=== PATIENT | male | born 1955 | race Caucasian/White ===

== ENCOUNTER 2021-02-21 05:44 | Outpatient (CLI) | payer MEDICARE, BC ==
[~2021-02-21] VITALS: Ht 175 cm; Wt 85.2 kg
[~2021-02-21 05:44] MED LIST changes: -DIAZ10TA PO
[2021-02-21] MEDS ORDERED: DIAZ10TA PO (17:53)
[2021-02-21] MEDS ORDERED: TMSL.4C PO (17:53)
[2021-02-21] MEDS ORDERED: LISI1TAB46 PO (17:53)
== END 2021-02-22 06:49 | disposition home or self-care (01) ==
LOC: PREOP 05:44
PROVIDERS: ATTEND Urology
DX: Z01.818 Encounter for other preprocedural examination (principal)

== ENCOUNTER → 2021-02-21 | Outpatient (CLI) | payer MEDICARE, BC ==
[~2021-02-21] MED LIST: DIAZ10TA PO; FENO145T26 PO; GLIP10TA24 PO; LISI1TAB46 PO; METF-399 PO; NAPR220T66 PO; PIOG15TA67 PO; SERT-414 PO; TMSL.4C PO
--- NOTE | 2021-02-21 12:29 | Diagnostic Imaging Report ---
INDICATION: Left-sided ureteral stone. FINDINGS: A supine view of the abdomen shows interval placement of a left-sided ureteral stent since the 02/18/2021 study. There are several stones in the lower pole of the left kidney whereas, on the previous exam, there was a stone in the left ureter and a stone in the lower pole of the left kidney. No stones on the right are seen. IMPRESSION: Interval placement of a left-sided ureteral stent which appears to be in satisfactory position. There are nonobstructing stones in the lower pole of the left kidney. Dictated by: Dictated on workstation # [id number]
== END ==
LOC: RAD 11:09
PROVIDERS: ATTEND Urology
DX: N20.2 Calculus of kidney with calculus of ureter (principal)
CPT/HCPCS: 74018

== ENCOUNTER 2021-02-22 07:01 | Day surgery (SDC) | payer MEDICARE, BC ==
[2021-02-22] VITALS (11 sets, daily range): BP systolic 132–173; BP diastolic 65–91
[~2021-02-22] VITALS: Ht 175 cm; Wt 85.2 kg
[~2021-02-22 07:01] MED LIST changes: +DIAZ10TA PO
--- NOTE | 2021-02-22 07:27 | Progress Note-Pre Operative ---
Pre-Operative Progress Note H&P Reviewed The H&P was reviewed, patient examined and no changes noted. Date Seen by Provider: Feb 22, 2021 Time Seen by Provider: 07:27 Date H&P Reviewed: Feb 22, 2021 Time H&P Reviewed: 07:27 Pre-Operative Diagnosis: LT RENAL STONES CECIL ALEJO MD Feb 22, 2021 07:27
[2021-02-22] MEDS ORDERED: LACTATED RINGERS 1,000 ML IV PRN (07:45)
[2021-02-22] MEDS ORDERED: cefTRIAXone 1,000 MG in WATER (STERILE) FOR INJECTION 10 ML IV ONE (07:45)
[2021-02-22] MEDS ORDERED: WATER (STERILE) FOR INJECTION 10 ML ONE (07:50)
[2021-02-22] MEDS ORDERED: cefTRIAXone 1,000 MG VIAL ONE (07:50)
--- NOTE | 2021-02-22 10:08 | Progress Note-Post Operative ---
Post-Operative Progess Note Surgeon (s)/Progress Man (s) Surgeon CECIL ALEJO MD Progress Man: NONE Pre-Operative Diagnosis LT RENAL STONES Post-Operative Diagnosis SAME Procedure & Operative Findings Date of Procedure 02/22/21 Procedure Performed/Findings LT ESWL Anesthesia Type GENERAL Estimated Blood Loss Estimated blood loss (mL): NONE Specimens/Packing Specimens Removed NONE Packing: NONE CECIL ALEJO MD Feb 22, 2021 10:08
--- NOTE | 2021-02-22 10:10 | Discharge Inst-Urology ---
Discharge Inst-Urology Reconcile Patient Problems Problems Reviewed?: Yes Final Diagnosis LT RENAL STONES Patient Instructions/Follow Up Plan/Assessment/Instructions Please make appointment to been seen in office , KUB prior to it KUB on way home Post ESWL instructions Increase oral fluids for 48 hours and then as needed. Diet and Activity as tolerated. If questions or concerns contact your physician Or seek help at emergency department. CECIL ALEJO MD Feb 22, 2021 10:10
[2021-02-22] MEDS ORDERED: proPOfol 200 MG/20 ML (DIPRIVAN) VIAL IV ONE (10:19)
[2021-02-22] MEDS ORDERED: ONDANSETRON 4 MG/2 ML (SDV) Z0FRAN ONE (10:19)
[2021-02-22] MEDS ORDERED: LIDOCAINE PF 2% 5 ML (XYLOCAINE) VIAL ONE (10:19)
[2021-02-22] MEDS ORDERED: fentaNYL INJ 100 MCG/2 ML AMP ONE ×2 (10:20→11:03)
[2021-02-22] MEDS ORDERED: MIDAZOLAM 2 MG/2 ML (VERSED) VIAL ONE (10:20)
[2021-02-22] MEDS ORDERED: FUROSEMIDE 40 MG/4 ML INJ (LASIX) ONE (10:58)
[2021-02-22] MEDS ORDERED: KETOROLAC 30 MG/ML VIAL ONE (10:59)
[2021-02-22] MEDS ORDERED: MEPERIDINE (DEMEROL) INJ 50 MG/ML ONE (11:26)
[2021-02-22] MEDS ORDERED: SEVOFLURANE (ULTANE) 15 ML INHAL SOLN ONE (11:34)
[2021-02-22] MEDS ORDERED: MEPERIDINE (DEMEROL) INJ 50 MG/ML IVP PRN (11:45)
--- NOTE | 2021-02-22 12:51 | Diagnostic Imaging Report ---
EXAMINATION: Abdomen 1 view HISTORY: POST ESWL COMPARISON: 02/21/2021 FINDINGS: There is a moderate amount of gas and stool throughout the colon. Nonobstructive bowel gas pattern. Overall stable size and appearance of multiple stones overlying the left kidney measuring up to 1.2 cm. A left ureteral stent is present. Stable calcification of the left pelvis. The lung bases are clear. The osseous structures are intact. IMPRESSION: Stable left renal calculi measuring up to 1.2 cm. Left ureteral stent is unchanged. Dictated by: Dictated on workstation # [id number]
--- NOTE | 2021-02-22 14:34 | Anesthesia-General Post-Op ---
General Patient Condition Mental Status/LOC: Same as Preop Cardiovascular: Satisfactory Nausea/Vomiting: Absent Respiratory: Satisfactory Pain: Controlled Complications: Absent Post Op Complications Complications None Follow Up Care/Instructions Patient Instructions None needed. Anesthesia/Patient Condition Patient Condition Patient is doing well, no complaints, stable vital signs, no apparent adverse anesthesia problems. No complications reported per nursing. D/C home per [facility] [place] Criteria: Yes MABEL WAY CRNA Feb 22, 2021 14:34
--- NOTE | 2021-02-22 19:22 | OPERATIVE REPORT ---
DATE OF SERVICE: 02/22/2021 PREOPERATIVE DIAGNOSIS: Left renal stones. POSTOPERATIVE DIAGNOSIS: Left renal stones. OPERATION PERFORMED: Left ESWL. SURGEON: Sukhwinder Aeljo MD. ANESTHESIA: General. COMPLICATIONS: None. DESCRIPTION OF PROCEDURE: Under satisfactory general anesthesia, the patient in supine position on the ESWL table, the originally left proximal ureteral stone now left renal stone was localized. Shocks were delivered at kV of 6. The patient was breathing and moving his kidney up and down, which diminished the effectiveness of the shocks. However, the stone showed cracking and breaking. The patient received 40 mg of Lasix and 30 mg of Toradol IV at the end of the procedure. He tolerated the procedure and anesthesia well and was sent to recovery room in stable condition. PLAN: We will see the effect of this procedure on him. If it is not effective and it is not worth repeating it, we will try to convince him again to go to to have percutaneous lithotripsy for which he is a good candidate. Job ID: [id number] DocumentID: [id number] Dictated Date: 02/22/2021 11:08:11 Restaurant Kitchen And Service Manager Date: 02/22/2021 19:21:49 Dictated By: SUKHWINDER ALEJO MD
== END 2021-02-22 13:15 | disposition home or self-care (01) ==
LOC: SDC 07:01
PROVIDERS: ATTEND Urology
DX: N20.0 Calculus of kidney (principal); K21.9 Gastro-esophageal reflux disease without esophagitis; I10 Essential (primary) hypertension; E66.9 Obesity, unspecified; Z68.27 Body mass index [BMI] 27.0-27.9, adult; Z11.2 Encounter for screening for other bacterial diseases; Z88.5 Allergy status to narcotic agent; Z98.61 Coronary angioplasty status; Z87.891 Personal history of nicotine dependence; Z79.899 Other long term (current) drug therapy
CPT/HCPCS: 74018; 82947; 87081

== ENCOUNTER → 2021-03-07 | Outpatient (CLI) | payer MEDICARE, BC ==
--- NOTE | 2021-03-07 13:02 | Diagnostic Imaging Report ---
INDICATION: Left ureteral calculus. COMPARISON: 02/22/2021. FINDINGS: Single supine radiographic view of the abdomen was obtained and demonstrates interval development of multiple extraosseous calcifications projecting over the caudal and cephalad portions of the indwelling left ureteral stent. Findings are consistent with new ureteral calculi. Persisting calculi also reside overlying the inferior pole of the left kidney. No unexpected radiopaque foreign bodies are seen. Small bowel loops are nondistended. There is no large collection of free intraperitoneal air. Osseous structures show no acute abnormalities. IMPRESSION: 1. New left-sided ureteral calculi. 2. Redemonstration of residual calculi projecting over the inferior pole of the left kidney. Dictated by: Dictated on workstation # [id number]
== END ==
LOC: RAD
PROVIDERS: ATTEND Urology
DX: N20.1 Calculus of ureter (principal)
CPT/HCPCS: 74018

== ENCOUNTER 2021-03-08 07:21 | Day surgery (SDC) | payer MEDICARE, BC ==
[2021-03-08] VITALS (10 sets, daily range): BP systolic 134–162; BP diastolic 65–89
[~2021-03-08] VITALS: Ht 175 cm; Wt 85.2 kg
[2021-03-08] MEDS ORDERED: WATER (STERILE) FOR INJECTION 10 ML ONE (07:49)
[2021-03-08] MEDS ORDERED: cefTRIAXone 1,000 MG VIAL ONE (07:49)
--- NOTE | 2021-03-08 08:03 | Progress Note-Pre Operative ---
Pre-Operative Progress Note H&P Reviewed The H&P was reviewed, patient examined and no changes noted. Date Seen by Provider: Mar 08, 2021 Time Seen by Provider: 08:03 Date H&P Reviewed: Mar 08, 2021 Time H&P Reviewed: 08:03 Pre-Operative Diagnosis: LT URETERAL AND RENAL STONES CECIL ALEJO MD Mar 08, 2021 08:03
[2021-03-08] MEDS ORDERED: MIDAZOLAM 2 MG/2 ML (VERSED) VIAL ONE (08:07)
[2021-03-08] MEDS ORDERED: fentaNYL INJ 100 MCG/2 ML AMP ONE ×2 (08:07→08:46)
--- NOTE | 2021-03-08 08:09 | Diagnostic Imaging Report ---
ABDOMEN/KUB 1VIEW INDICATION: Left-sided ureteral stones status post lithotripsy COMPARISON: 03/07/2021 TECHNIQUE: Single AP view of the abdomen FINDINGS: The more proximal stones along the nephroureteral stent have diminished in size. Numerous small tandem stones along the distal ureter are similar. Stone in the lower pole left kidney similar. IMPRESSION: Persistent left-sided ureteral stones with nephroureteral stent in place. Dictated by: Dictated on workstation # [id number]
[2021-03-08] MEDS ORDERED: LACTATED RINGERS 1,000 ML IV PRN (08:15)
[2021-03-08] MEDS ORDERED: cefTRIAXone 1,000 MG in WATER (STERILE) FOR INJECTION 10 ML IV ONE (08:15)
--- NOTE | 2021-03-08 08:41 | Progress Note-Post Operative ---
Post-Operative Progess Note Surgeon (s)/Paint Grinder (s) Surgeon CECIL ALEJO MD Paint Grinder: NONE Pre-Operative Diagnosis LT URETERAL AND RENAL STONES Post-Operative Diagnosis SAME Procedure & Operative Findings Date of Procedure 03/08/21 Procedure Performed/Findings LT ESWL X 2 Anesthesia Type GENERAL Estimated Blood Loss Estimated blood loss (mL): NONE Specimens/Packing Specimens Removed NONE Packing: NONE CECIL ALEJO MD Mar 08, 2021 08:41
--- NOTE | 2021-03-08 08:43 | Discharge Inst-Urology ---
Discharge Inst-Urology Reconcile Patient Problems Problems Reviewed?: Yes Patient Instructions/Follow Up Plan/Assessment/Instructions Please make appointment to been seen in office Wednesday 03/14, KUB prior to it. KUB on way home Post ESWL instructions Increase oral fluids for 48 hours and then as needed. Diet and Activity as tolerated. If questions or concerns contact your physician Or seek help at emergency department. CECIL ALEJO MD Mar 08, 2021 08:43
[2021-03-08] MEDS ORDERED: FUROSEMIDE 40 MG/4 ML INJ (LASIX) ONE (09:00)
[2021-03-08] MEDS ORDERED: proPOfol 200 MG/20 ML (DIPRIVAN) VIAL IV ONE (09:00)
[2021-03-08] MEDS ORDERED: KETOROLAC 30 MG/ML VIAL ONE (09:00)
[2021-03-08] MEDS ORDERED: SUCCINYLCHOLINE INJ 100 MG/5 ML SYR/VIAL ONE (09:00)
[2021-03-08] MEDS ORDERED: ROCURONIUM 10 MG/ML 5 ML SYRINGE IV ONE ×2 (09:07→09:14)
[2021-03-08] MEDS ORDERED: ONDANSETRON 4 MG/2 ML (SDV) Z0FRAN ONE (09:13)
[2021-03-08] MEDS ORDERED: PHENYLEPHRINE INJ 10 MG/ML (FOR DRIP KITS ONLY) ONE (09:14)
[2021-03-08] MEDS ORDERED: PHENYLEPHRINE 100 MCG/ML 10 ML (ANESTHESIA) SYR ONE (09:14)
[2021-03-08] MEDS ORDERED: LIDOCAINE PF 2% 5 ML (XYLOCAINE) VIAL ONE (09:14)
[2021-03-08] MEDS ORDERED: SUGAMMADEX 500 MG/5 ML VIAL (BRIDION) IV ONE (09:22)
[2021-03-08] MEDS ORDERED: SEVOFLURANE (ULTANE) 15 ML INHAL SOLN ONE (09:27)
[2021-03-08] MEDS ORDERED: MEPERIDINE (DEMEROL) INJ 50 MG/ML ONE (09:41)
[2021-03-08] MEDS ORDERED: RT-ALBUTEROL SULF 2.5 MG/3 ML PRE-MIX VIAL ONE (09:41)
--- NOTE | 2021-03-08 11:25 | Anesthesia-General Post-Op ---
General Patient Condition Mental Status/LOC: Same as Preop Cardiovascular: Satisfactory Nausea/Vomiting: Absent Respiratory: Satisfactory Pain: Controlled Complications: Absent Post Op Complications Complications None Follow Up Care/Instructions Patient Instructions None needed. Anesthesia/Patient Condition Patient Condition Patient is doing well, no complaints, stable vital signs, no apparent adverse anesthesia problems. No complications reported per nursing. ISMA CANTOR CRNA Mar 08, 2021 11:25
--- NOTE | 2021-03-08 11:57 | Diagnostic Imaging Report ---
INDICATION: Kidney stone. Comparison with 03/08/2021 at 8:00 a.m.. The double-J stent present. Multiple calculi are noted stacked in the lower ureter as well as calculus proximally near the stent. Also calculus seen in the lower pole calyx of the kidney. IMPRESSION: Multiple ureteral calculi again demonstrated without appreciable change since 8:00 a.m. exam. Dictated by: Dictated on workstation # [id number]
--- NOTE | 2021-03-08 17:46 | OPERATIVE REPORT ---
DATE OF SERVICE: 03/08/2021 PREOPERATIVE DIAGNOSES: Left distal and proximal ureteral stone and left renal stone. POSTOPERATIVE DIAGNOSES: Left distal and proximal ureteral stone and left renal stone. OPERATION PERFORMED: Left ESWL. SURGEON: Sukhwinder Alejo MD ANESTHESIA: General. COMPLICATIONS: None. DESCRIPTION OF PROCEDURE: Under satisfactory general anesthesia, the patient in supine position on the ESWL table, we first localized the big bunch of fragment in the left distal ureter. We delivered shocks at kV of 11 for a total of 3000 shocks. Good results was observed. Then, we moved to the proximal stones and delivered 2000 shocks at kV of 6 again with good results. We left the lower pole renal stone unknown, so we do not bring more fragments. The patient tolerated the procedure and anesthesia well and was sent to recovery room in stable condition after receiving 30 mg of Toradol and 40 mg of Lasix IV. PLAN: We will bring him back in a week at the office. We will get a KUB, see the results, probably take the stent out and see how the fragments were mobilized out and then decide later on the mikel of the left lower pole renal stone. This was previously explained to the patient preoperatively. Job ID: [id number] DocumentID: [id number] Dictated Date: 03/08/2021 09:24:46 Warble Saw Operator Date: 03/08/2021 17:45:58 Dictated By: SUKHWINDER ALEJO MD
== END 2021-03-08 12:00 | disposition home or self-care (01) ==
LOC: SDC 07:21
PROVIDERS: ATTEND Urology
DX: N20.2 Calculus of kidney with calculus of ureter (principal); K21.9 Gastro-esophageal reflux disease without esophagitis; I10 Essential (primary) hypertension; E11.9 Type 2 diabetes mellitus without complications; E66.9 Obesity, unspecified; Z68.27 Body mass index [BMI] 27.0-27.9, adult; E07.9 Disorder of thyroid, unspecified; Z79.84 Long term (current) use of oral hypoglycemic drugs; Z79.899 Other long term (current) drug therapy; Z11.2 Encounter for screening for other bacterial diseases; Z88.5 Allergy status to narcotic agent
CPT/HCPCS: 74018; 82947; 87081

== ENCOUNTER → 2021-03-14 | Outpatient (CLI) | payer MEDICARE, BC ==
--- NOTE | 2021-03-14 15:22 | Diagnostic Imaging Report ---
INDICATION: Left nephrolithiasis. EXAMINATION: KUB at 2:18 PM. FINDINGS: There is a left double-J ureteral stent. There are numerous small calculi adjacent to the stent in the distal ureter. There is an 8 mm calculus projecting over the lower pole of the left kidney. There is a 7 mm calculus projecting over the proximal ureter adjacent to the stent. IMPRESSION: Left nephrolithiasis, left ureteral lithiasis. Left double-J ureteral stent. No appreciable interval change compared to the exam dated 03/08/2021. Dictated by: Dictated on workstation # [id number]
== END ==
LOC: RAD
PROVIDERS: ATTEND Urology
DX: N20.2 Calculus of kidney with calculus of ureter (principal)
CPT/HCPCS: 74018

== ENCOUNTER → 2021-03-29 | Outpatient (CLI) | payer MEDICARE, BC ==
--- NOTE | 2021-03-29 14:23 | Diagnostic Imaging Report ---
Indication: Left ureteral calculus. COMPARISON: 03/14/2021 FINDINGS: Single frontal radiographic view of the abdomen was obtained. In the interim, left-sided double-J ureteral stent has since been removed. Extraosseous calcifications are again identified projecting over the left hemipelvis. Some of these are likely on the basis of pelvic phleboliths. Retained distal ureteral calculi cannot be entirely excluded. There is also 7 mm extraosseous calcification projecting over the inferior pole the left kidney consistent with renal calculus. No unexpected opaque foreign bodies are seen. Small bowel loops are nondistended. There is no large collection of free intraperitoneal air. Osseous structures show no acute abnormalities IMPRESSION: 1. Removal of left-sided double-J ureteral stent. 2. Left-sided pelvic calculi with considerations as above. 3. Probable residual left renal calculus as well. Dictated by: Dictated on workstation # [id number]
== END ==
LOC: RAD 13:43
PROVIDERS: ATTEND Urology
DX: N20.1 Calculus of ureter (principal); N28.89 Other specified disorders of kidney and ureter; Z96.0 Presence of urogenital implants
CPT/HCPCS: 74018

== ENCOUNTER → 2021-04-20 | Outpatient (CLI) | payer MEDICARE, BC ==
--- NOTE | 2021-04-20 15:37 | Diagnostic Imaging Report ---
INDICATION: History of kidney stones. COMPARISON: 03/29/2021 FINDINGS: Single frontal radiographic view of the abdomen was obtained. Small bowel loops are nondistended. There is no large collection of free intraperitoneal air. Left-sided pelvic phleboliths are noted. No unexpected extraosseous calcifications or radiopaque foreign bodies are seen. Osseous structures show no acute abnormalities. IMPRESSION: 1. No unexpected extraosseous calcifications. 2. Nonobstructed small bowel gas pattern Dictated by: Dictated on workstation # [id number]
== END ==
LOC: RAD 14:53
PROVIDERS: ATTEND Urology
DX: N20.2 Calculus of kidney with calculus of ureter (principal)
CPT/HCPCS: 74018

== ENCOUNTER 2021-04-25 10:26 | Emergency (ER) | payer MEDICARE, BC ==
[~2021-04-25] VITALS: Ht 175 cm; Wt 85.2 kg
[2021-04-25] MEDS ORDERED: KETOROLAC 30 MG/ML VIAL IVP ONE (10:45)
[2021-04-25 11:20] LABS: BASOPHILS % (AUTO) 0 % (0-10); EOSINOPHILS % (AUTO) 0 % (0-10); HEMATOCRIT 43 % (40-54); HEMOGLOBIN 14.2 g/dL (13.3-17.7); LYMPHOCYTES # (AUTO) 1.6 10^3/uL (1.0-4.0); LYMPHOCYTES % (AUTO) 15 % (12-44); MEAN CORPUSCULAR HEMOGLOBIN 33 pg (25-34); MEAN CORPUSCULAR HGB CONC 33 g/dL (32-36); MEAN CORPUSCULAR VOLUME 99 fL (80-99); MONOCYTES # (AUTO) 1.2 10^3/uL (0.0-1.0); MONOCYTES % (AUTO) 11 % (0-12); NEUTROPHILS # (AUTO) 7.9 10^3/uL (1.8-7.8); NEUTROPHILS % (AUTO) 73 % (42-75); PLATELET COUNT 266 10^3/uL (130-400); WHITE BLOOD COUNT 10.8 10^3/uL (4.3-11.0)
[2021-04-25 11:20] LABS: CLARITY,URINE SL CLOUDY; COLOR,URINE ORANGE; GLUCOSE, URINE (UA) 1+ (NEGATIVE); KETONES,URINE 1+ (NEGATIVE); LEUKOCYTE ESTERASE ,URINE 1+ (NEGATIVE); NITRITE,URINE NEGATIVE (NEGATIVE); PH,URINE 5.5 (5-9); PROTEIN,URINE 1+ (NEGATIVE)
[2021-04-25 11:32] LABS: POTASSIUM 3.5 MMOL/L (3.6-5.0)
[2021-04-25 11:32] LABS: BACTERIA,URINE MODERATE /HPF; RBC,URINE 50-100 /HPF; SQUAMOUS EPITHELIAL CELL,UR 0-2 /HPF; WBC,URINE 25-50 /HPF
--- NOTE | 2021-04-25 11:32 | ED GU-Female ---
General Chief Complaint: - Reproductive Stated Complaint: KIDNEY STONES Nursing Triage Note: PT IS SEEN BY DR. ALEJO FOR KIDNEY STONES, LITHOTRIPSY 3 TIMES, RECENT PAIN STARTED LAST SUNDAY LLQ. Source: patient Exam Limitations: no limitations (ANDREIA AGUILAR APRN) History of Present Illness Date Seen by Provider: Apr 25, 2021 Time Seen by Provider: 11:00 Initial Comments To ER with severe pain over the left flank this weekend. Has a known stone 9 mm in size in the left kidney. No fevers or chills. He also reports quite a bit of pain when urinating. Timing/Duration: constant Severity/Quality: moderate Radiation: left flank Activities at Onset: none Prior Genitourinary Problems: none Associated Symptoms: dysuria (ANDREIA AGUILAR APRN) Allergies and Home Medications Allergies Coded Allergies: codeine (Verified Allergy, Intermediate, Abdominal Pain, 02/22/21) hydrocodone (Verified Allergy, Intermediate, Abdominal Pain, 02/22/21) Patient Home Medication List Home Medication List Reviewed: Yes (ANDREIA AGUILAR APRN) Cefuroxime Axetil (Cefuroxime) 250 Mg Tablet, 250 MG PO BID Prescribed by: ANDREIA AGUILAR on 04/25/21 1141 Diazepam (Valium) 10 Mg Tablet, 10 MG PO PRN PRN for ANXIETY, (Reported) Entered as Reported by: ELLIS HANEY on 02/21/21 175 Fenofibrate Nanocrystallized (Fenofibrate) 145 Mg Tablet, 145 MG PO DAILY, (Reported) Entered as Reported by: PRINCE DUMONT on 02/18/21 1013 Glipizide (Glipizide ER) 10 Mg Tab.er.24, 10 MG PO DAILY, (Reported) Entered as Reported by: PRINCE DUMONT on 02/18/21 1013 Lisinopril/Hydrochlorothiazide (Lisinopril-Hctz 20-12.5 mg Tab) 1 Each Tablet, 2 EACH PO DAILY, (Reported) Entered as Reported by: ELLIS HANEY on 02/21/21 1753 Metformin HCl (Metformin HCl) 1,000 Mg Tablet, 1,000 MG PO BID, (Reported) Entered as Reported by: PRINCE DUMONT on 02/18/21 1013 Naproxen Sodium (Aleve) 220 Mg Tablet, 220 MG PO BID, (Reported) Entered as Reported by: PRINCE DUMONT on 02/18/21 1013 Pioglitazone HCl (Pioglitazone HCl) 15 Mg Tablet, 15 MG PO DAILY, (Reported) Entered as Reported by: PRINCE DUMONT on 02/18/21 1013 Sertraline HCl (Sertraline HCl) 100 Mg Tablet, 100 MG PO DAILY, (Reported) Entered as Reported by: PRINCE DUMONT on 02/18/21 1013 Tamsulosin HCl (Flomax) 0.4 Mg Cap, 2 TAB PO DAILY, (Reported) Entered as Reported by: ELLIS HANEY on 02/21/21 1753 Review of Systems Review of Systems Constitutional: see HPI EENTM: see HPI Respiratory: no symptoms reported Cardiovascular: no symptoms reported Genitourinary: see HPI, flank pain Musculoskeletal: no symptoms reported Skin: no symptoms reported Psychiatric/Neurological: No Symptoms Reported Endocrine: No Symptoms Reported (ANDREIA AGUILAR APRN) Past Mvqzzil-Jpfpto-Wfoxkk Hx Immunizations Up To Date First/Initial COVID19 Vaccinat: 06/2020 Second COVID19 Vaccination Henrik: 07/2020 (ANDREIA AGUILAR APRN) Seasonal Allergies Seasonal Allergies: No (ANDREIA AGUILAR APRN) Past Medical History Surgeries: Yes Appendectomy Respiratory: No Currently Using CPAP: No Currently Using BIPAP: No Cardiac: Yes High Cholesterol Neurological: No Genitourinary: Yes Kidney Stones Gastrointestinal: No Musculoskeletal: Yes Arthritis Endocrine: Yes Diabetes, Non-Insulin dep HEENT: Yes (WEARS GLASSES) Hearing Impairment: Denies Cancer: No Psychosocial: Yes Anxiety Integumentary: No Blood Disorders: No (ANDREIA AGUILAR APRN) Physical Exam Vital Signs Vital Signs - First Documented 04/25/21 11:00 Temp 36.9 Pulse 70 Resp 20 B/P (MAP) 168/88 (114) Pulse Ox 97 O2 Delivery Room Air (JD CALIXTO MD) Vital Signs Capillary Refill : Less Than 3 Seconds (ANDREIA AGUILAR APRN) Height, Weight, BMI Height: '" Weight: lbs. oz. kg; 27.00 BMI Method: General Appearance: WD/WN, no apparent distress HEENT: PERRL/EOMI, normal ENT inspection Neck: non-tender, full range of motion Respiratory: no respiratory distress, no accessory muscle use Gastrointestinal: normal bowel sounds, non tender, soft Neurologic/Psychiatric: alert, normal mood/affect, oriented x 3 Skin: normal color, warm/dry (ANDREIA AGUILAR APRN) Progress/Results/Core Measures Suspected Sepsis SIRS Temperature: Pulse: 70 Respiratory Rate: 20 Laboratory Tests 04/25/21 11:10: White Blood Count 10.8 Blood Pressure 168 /88 Mean: 114 Laboratory Tests 04/25/21 11:10: Creatinine 2.04H, Platelet Count 266 (ANDREIA AGUILAR APRN) Results/Orders Lab Results Laboratory Tests Test 04/25/21 11:05 04/25/21 11:10 Range/Units Urine Color ORANGE Urine Clarity SL CLOUDY Urine pH 5.5 5-9 Urine Specific [place] 1.025 H 1.016-1.022 Urine Protein 1+ H NEGATIVE Urine Glucose (UA) 1+ H NEGATIVE Urine Ketones 1+ H NEGATIVE Urine Nitrite NEGATIVE NEGATIVE Urine Bilirubin 1+ H NEGATIVE Urine Urobilinogen 0.2 < = 1.0 MG/DL Urine Leukocyte Esterase 1+ H NEGATIVE Urine RBC (Auto) 3+ H NEGATIVE Urine RBC 50-100 H /HPF Urine WBC 25-50 H /HPF Urine Squamous Epithelial Cells 0-2 /HPF Urine Crystals NONE /LPF Urine Bacteria MODERATE H /HPF Urine Casts PRESENT /LPF Urine Hyaline Casts 2-5 H /LPF Urine Mucus MODERATE H /LPF Urine Culture Indicated YES White Blood Count 10.8 4.3-11.0 10^3/uL Red Blood Count 4.29 L 4.30-5.52 10^6/uL Hemoglobin 14.2 13.3-17.7 g/dL Hematocrit 43 40-54 % Mean Corpuscular Volume 99 80-99 fL Mean Corpuscular Hemoglobin 33 25-34 pg Mean Corpuscular Hemoglobin Concent 33 32-36 g/dL Red Cell Distribution Width 12.8 10.0-14.5 % Platelet Count 266 130-400 10^3/uL Mean Platelet Volume 11.0 9.0-12.2 fL Immature Granulocyte % (Auto) 1 % Neutrophils (%) (Auto) 73 42-75 % Lymphocytes (%) (Auto) 15 12-44 % Monocytes (%) (Auto) 11 0-12 % Eosinophils (%) (Auto) 0 0-10 % Basophils (%) (Auto) 0 0-10 % Neutrophils # (Auto) 7.9 H 1.8-7.8 10^3/uL Lymphocytes # (Auto) 1.6 1.0-4.0 10^3/uL Monocytes # (Auto) 1.2 H 0.0-1.0 10^3/uL Eosinophils # (Auto) 0.0 0.0-0.3 10^3/uL Basophils # (Auto) 0.0 0.0-0.1 10^3/uL Immature Granulocyte # (Auto) 0.1 0.0-0.1 10^3/uL Sodium Level 138 135-145 MMOL/L Potassium Level 3.5 L 3.6-5.0 MMOL/L Chloride Level 102 98-107 MMOL/L Carbon Dioxide Level 22 21-32 MMOL/L Anion Gap 14 5-14 MMOL/L Blood Urea Nitrogen 32 H 7-18 MG/DL Creatinine 2.04 H 0.60-1.30 MG/DL Estimat Glomerular Filtration Rate 33 BUN/Creatinine Ratio 16 Glucose Level 203 H 70-105 MG/DL Calcium Level 10.1 8.5-10.1 MG/DL (JD CALIXTO MD) My Orders Orders - JD CALIXTO MD Ua Culture If Indicated (04/25/21 10:31) Urine Culture (04/25/21 11:05) (JD CALIXTO MD) Medications Given in ED Current Medications Medications Dose Ordered Sig/Quentin Route Start Time Stop Time Status Last Admin Dose Admin Ceftriaxone Sodium/Dextrose 50 ml @ 100 mls/hr ONCE ONCE IV 04/25/21 11:45 04/25/21 12:14 DC 04/25/21 11:46 100 MLS/HR Ketorolac Tromethamine 15 mg ONCE ONCE IVP 04/25/21 10:45 04/25/21 10:46 DC 04/25/21 11:42 15 MG (JD CALIXTO MD) Vital Signs/I&O 04/25/21 04/25/21 04/25/21 11:00 11:42 12:23 Temp 36.9 36.9 36.9 Pulse 70 68 Resp 20 20 B/P (MAP) 168/88 (114) 168/88 Pulse Ox 97 97 O2 Delivery Room Air Room Air (JD CALIXTO MD) Vital Signs/I&O Capillary Refill : Less Than 3 Seconds (ANDREIA AGUILAR APRN) Blood Pressure Mean: 114 Departure Communication (Admissions) NAME: JUDY MON [facility] REC#: [id number] PT STATUS: REG ER : 1955 PHYSICIAN: ANDREIA AGUILAR APRN ADMIT DATE: 04/25/21/ER Draft Date of Exam:04/25/21 ABDOMEN/KUB 1VIEW INDICATION: Left-sided pain and kidney stones. TIME OF EXAM: 11:24 AM Correlation made with CT study earlier same day. Bowel gas pattern is unremarkable. The calculi noted on CT are more difficult to visualize by plain film. There appears to be a punctate calculus in the mid right kidney. Ovoid calcific density in the pelvis on the right side is noted measuring 10 mm. This correlates with calculus noted in the bladder on the CT study of the same day. When correlating with the KUB from 04/20/2021, this most likely represented the ovoid calcific density in the left hemipelvis, which is likely in the distal left ureter. IMPRESSION: A right hemipelvic calculus is noted, correlating with a calculus located in the urinary bladder, seen on CT. This most likely represents a recently passed left urinary tract calculus. Dictated on workstation # [id number] Dict: 04/25/21 1128 Trans: 04/25/21 1132 [facility] [id number] Interpreted by: LAURE SIMMS MD Electronically signed by: NAME: JUDY MON [facility] REC#: [id number] PT STATUS: REG ER : 1955 PHYSICIAN: ANDREIA AGUILAR APRN ADMIT DATE: 04/25/21/ER Draft Date of Exam:04/25/21 CT ABD/PELVIS WO(KIDNEY STONE) PROCEDURE: CT urinary tract, rule out kidney stone. TECHNIQUE: Multiple contiguous axial images were obtained through the abdomen and pelvis without the use of intravenous contrast. Auto Exposure Controls were utilized during the CT exam to meet ALARA standards for radiation dose reduction. INDICATION: Hematuria and left lower quadrant pain. No prior CT studies are available for comparison. Lung bases are clear. The liver and gallbladder are unremarkable. There is no biliary duct dilatation. The pancreas and spleen are unremarkable. Right adrenal gland is unremarkable. There is a low-density left adrenal nodule measuring 19 mm in size suggestive of an adenoma. Punctate nonobstructing calculi throughout the right kidney are noted. There is a punctate nonobstructing calculus lower pole left kidney. Left kidney does demonstrate a moderate hydroureteronephrosis. No definite obstructing calculus is seen. However, there is a calculus in the bladder base on the right side measuring 10 mm. This could represent a recently passed calculus. Aorta is calcified but nonaneurysmal. Bowel loops are normal caliber. There is diverticulosis of the descending and sigmoid colon but no evidence of acute diverticulitis. Prostate is unremarkable. No free fluid or fluid collection is seen. IMPRESSION: 1. Bilateral nonobstructing nephrolithiasis. There is moderate left-sided hydroureteronephrosis. However, no obstructing calculus is seen. There is a 10 mm calculus in the bladder base on the right, near the UVJ of the right ureter. Based on the findings of the left-sided urinary tract this most likely represents a recently passed calculus from the left-sided tracks, with some residual edema at the UVJ on the left. 2. Uncomplicated diverticulosis. Dictated on workstation # [id number] Dict: 04/25/21 1121 Trans: 04/25/21 1130 CV [id number] Interpreted by: LAURE SIMMS MD Electronically signed by: [id number]-his pain is well controlled after Toradol. His informs me that they have Toradol and an antibiotic at home. I spoke with Dr. Alejo and he will see the patient tomorrow at [address] it looks to me (official report pending) like the stone is in the bladder with some stranding around the left kidney and ureter and persistent ureteral dilatation. Given that his pain occurs with urination and the stone seems to be on the right side of the bladder (though his pain is on the left side) I suspect that his stone is now tumbling around in the bladder. He states that he has a lot of pain and difficulty with urination now. I showed him the CT and we discussed trying to urinate laying on his side in case the stone is acting as a ball-valve and falling into the bladder outlet during urination when he is upright. He agrees to try this. He will follow-up with Dr. Alejo tomorrow. (ANDREIA AGUILAR APRN) Impression Primary Impression: Passed kidney stone Additional Impression: Bladder stone Disposition: 01 HOME, SELF-CARE Condition: Stable Departure-Patient Inst. Decision time for Depature: 11:35 (ANDREIA AGUILAR APRN) Referrals: NO,LOCAL PHYSICIAN (PCP) Primary Care Physician CECIL ALEJO MD Patient Instructions: Urinary Tract Infection, Adult (DC), Kidney Stone Diet Add. Discharge Instructions: Try laying on your left or right side when you urinate to see if this helps (based on the theory that the stone could be tumbling around within the bladder and fall into and blocked the bladder outlet during urination when you are standing upright). Take the Toradol every 8 hours as needed at home for intolerable pain but try to use this as infrequently as possible given your kidney dysfunction on labs, this class of drugs can worsen that. see Dr. Alejo tomorrow at 1 PM. All discharge instructions reviewed with patient and/or family. Voiced understanding. Scripts Cefuroxime Axetil (Cefuroxime) 250 Mg Tablet 250 MG PO BID, #20 TAB Prov: ANDREIA AGUILAR APRN 04/25/21 ATTENDING PHYSICIAN NOTE: I was physically present as attending physician in the emergency department during the care of this patient, but I was not directly involved in the decision making or delivery of care for this patient. (JD CALIXTO MD) Copy Copies To 1: CECIL ALEJO MD, PETER J APRN Apr 25, 2021 11:32 DJ CALIXTO MD Apr 25, 2021 18:25
[2021-04-25 11:34] LABS: CALCIUM 10.1 MG/DL (8.5-10.1)
[2021-04-25 11:38] LABS: CREATININE SERUM 2.04 MG/DL (0.60-1.30)
[2021-04-25] MEDS ORDERED: CEFU250T80 PO (11:41)
[2021-04-25] MEDS ORDERED: cefTRIAXone 1 GM PRE-MIX 50 ML IV ONE (11:45)
[2021-04-25 12:23] VITALS: BP 168/88
[2021-04-25 13:04] LABS: BILIRUBIN,URINE 1+ (NEGATIVE)
== END 2021-04-25 12:27 | disposition home or self-care (01) ==
LOC: EDUNIT# 10:26 → ER 10:29
DX: N13.2 Hydronephrosis with renal and ureteral calculous obstruction (principal); N21.0 Calculus in bladder; E11.9 Type 2 diabetes mellitus without complications; E78.00 Pure hypercholesterolemia, unspecified; F41.9 Anxiety disorder, unspecified; Z79.84 Long term (current) use of oral hypoglycemic drugs; Z79.899 Other long term (current) drug therapy
CPT/HCPCS: 36415; 74018; 74176; 80048; 81000; 85025; 87088

== ENCOUNTER 2021-04-26 13:51 | Outpatient (CLI) | payer MEDICARE, BC ==
[~2021-04-26] VITALS: Ht 175.3 cm; Wt 85.2 kg
[~2021-04-26 13:51] MED LIST changes: +CEFU250T80 PO
== END 2021-04-26 15:17 | disposition home or self-care (01) ==
LOC: PREOP 13:51
PROVIDERS: ATTEND Urology
DX: Z01.818 Encounter for other preprocedural examination (principal)

== ENCOUNTER 2021-04-27 06:15 | Day surgery (SDC) | payer MEDICARE, BC ==
[2021-04-27] VITALS (9 sets, daily range): BP systolic 126–149; BP diastolic 64–85
[~2021-04-27] VITALS: Ht 175 cm; Wt 85.2 kg
--- NOTE | 2021-04-27 06:40 | Diagnostic Imaging Report ---
Indication: Bladder stone. Comparison with 04/25/2021. FINDINGS: KUB. The calcification again noted in the pelvis on the right and left. Largest on the right measuring 10 mm. These are unchanged in position. The CT scan previously did confirm the larger stone is in the bladder with the smaller stone on the left representing a phlebolith. Bowel gas pattern is normal. No organomegaly or pathologic calcification. IMPRESSION: Bladder stone again noted unchanged in location. Dictated by: Dictated on workstation # [id number]
[2021-04-27] MEDS ORDERED: cefTRIAXone 1 GM PRE-MIX 50 ML IV ONE (07:00)
[2021-04-27] MEDS ORDERED: ONDANSETRON 4 MG/2 ML (SDV) Z0FRAN ONE (07:15)
[2021-04-27] MEDS ORDERED: LIDOCAINE PF 2% 5 ML (XYLOCAINE) VIAL ONE (07:15)
[2021-04-27] MEDS ORDERED: fentaNYL INJ 100 MCG/2 ML AMP ONE (07:15)
[2021-04-27] MEDS ORDERED: MIDAZOLAM 2 MG/2 ML (VERSED) VIAL ONE (07:17)
--- NOTE | 2021-04-27 07:26 | Progress Note-Pre Operative ---
Pre-Operative Progress Note H&P Reviewed The H&P was reviewed, patient examined and no changes noted. Date Seen by Provider: Apr 27, 2021 Time Seen by Provider: 07: Date H&P Reviewed: Apr 27, 2021 Time H&P Reviewed: 07:26 Pre-Operative Diagnosis: BLADDER STONE CECIL ALEJO MD Apr 27, 2021 07:26
--- NOTE | 2021-04-27 07:28 | Progress Note-Post Operative ---
Post-Operative Progess Note Surgeon (s)/Dry Cleaning Checker (s) Surgeon CECIL ALEJO MD Dry Cleaning Checker: NONE Pre-Operative Diagnosis BLADDER STONE Post-Operative Diagnosis SAME Procedure & Operative Findings Date of Procedure 04/27/21 Procedure Performed/Findings CYSTOSCOPY AND EXTRACTION OF BLADDER STONE Anesthesia Type GENERAL Estimated Blood Loss Estimated blood loss (mL): NONE Specimens/Packing Specimens Removed STONE Packing: NONE CECIL ALEJO MD Apr 27, 2021 07:28
--- NOTE | 2021-04-27 07:29 | Discharge Inst-Urology ---
Discharge Inst-Urology Reconcile Patient Problems Problems Reviewed?: Yes Final Diagnosis BLADDER STONE Patient Instructions/Follow Up Plan/Assessment/Instructions Please make appointment to been seen in office in 2 weeks. Stone for analysis post seen by patient, has it No Rx No KUB's Increase oral fluids for 48 hours and then as needed. Diet and Activity as tolerated. If questions or concerns contact your physician Or seek help at emergency department. CECIL ALEJO MD Apr 27, 2021 07:29
[2021-04-27] MEDS ORDERED: LACTATED RINGERS 1,000 ML IV PRN (07:30)
[2021-04-27] MEDS ORDERED: SEVOFLURANE (ULTANE) 15 ML INHAL SOLN ONE (08:11)
[2021-04-27] MEDS ORDERED: proPOfol 200 MG/20 ML (DIPRIVAN) VIAL IV ONE (08:11)
--- NOTE | 2021-04-27 15:18 | OPERATIVE REPORT ---
DATE OF SERVICE: 04/27/2021 PREOPERATIVE DIAGNOSIS: Bladder stone. POSTOPERATIVE DIAGNOSIS: Bladder stone. OPERATION PERFORMED: Cystoscopy and extraction of bladder stone. SURGEON: Sukhwinder Alejo MD ANESTHESIA: General. COMPLICATIONS: None. DESCRIPTION OF PROCEDURE: Under satisfactory general anesthesia, the patient in lithotomy position, genitalia were prepped and draped in the usual sterile fashion. Cystoscope was introduced under vision. The anterior urethra was normal. The prostate was mildly enlarged with some mild median bar. The bladder was entered essentially normal except for the bladder stone. It was grasped with a grasping forceps in a way to mitigate the least diameter will be transversed. After a couple of failed attempts to go through the prostate, a third one I was able to pass through the prostate and then the stone fell into the urethra. I grasped it again and extracted it completely. I went back with the cystoscope to empty the bladder. There were no further stones or fragments in the bladder and the ureteral orifices had clear effluxes equally. I emptied the bladder, removed the cystoscope. The patient tolerated the procedure and anesthesia well and was sent to recovery room in stable condition. CC: Hipolito Christianson NP - requested, unable to deliver. Job ID: [id number] DocumentID: [id number] Dictated Date: 04/27/2021 08:10:23 Power Hair Clipper Date: 04/27/2021 15:18:14 Dictated By: SUKHWINDER ALEJO MD
== END 2021-04-27 09:20 | disposition home or self-care (01) ==
LOC: SDC 06:15
PROVIDERS: ATTEND Urology
DX: N21.0 Calculus in bladder (principal); E11.9 Type 2 diabetes mellitus without complications; I10 Essential (primary) hypertension; Z79.899 Other long term (current) drug therapy
CPT/HCPCS: 74018; 82947; 87081